=== PATIENT | male | born 1955 | race Caucasian/White ===

== ENCOUNTER 2018-11-27 10:11 | Day surgery (SDC) | payer OTHER ==
[~2018-11-27] VITALS: Ht 167.6 cm; Wt 93.2 kg
[2018-11-27] VITALS (11 sets, daily range): BP systolic 110–134; BP diastolic 59–72; PULSE 74–90; RESP 16–24; Ht 167.6 cm; Wt 93.2 kg
[~2018-11-27 10:11] MED LIST: CEFAZOLIN 2 GM/50 ML (PMX) 50 ML IVPB ONE; SOD CHLORIDE 0.9% 1,000 ML IV ONE
[2018-11-27] MEDS ORDERED: MTF1000T PO (11:05)
[2018-11-27] MEDS ORDERED: FURO40TA4 PO (11:06)
[2018-11-27] MEDS ORDERED: IBUP-1542 PO (11:06)
[2018-11-27] MEDS ORDERED: CHOL100062 PO (11:06)
[2018-11-27] MEDS ORDERED: TAMS0.4C2 PO ×2 (11:07→11:08)
[2018-11-27] MEDS ORDERED: ROSU40TA35 PO (11:07)
[2018-11-27] MEDS ORDERED: TRAM50TA PO (11:07)
[2018-11-27] MEDS ORDERED: ROSU20TA PO (11:08)
[2018-11-27] MEDS ORDERED: LANS15CA5 PO (11:08)
--- NOTE | 2018-11-27 11:59 | PREAC ---
Date/Time of Note Date/Time of Note DATE: 11/27/18 TIME: 11:58 Anesthesia Eval and Record Evaluation Time Pre-Procedure Interview DATE: 11/27/18 TIME: 11:58 Age 63 Sex male NPO: 8 hrs Preoperative diagnosis pilonidal cyst Planned procedure excision of pilonidal cyst Past Medical History Past Medical History: Includes Cardio: HTN, Dyslipidemia Endo: Diabetes Pulm: Smoking Hx (occasional) GI: Obesity Surgery & Anesthesia Issues No known issue Meds Anticoagulation: No Beta Elba within 24 hr: No Reason Beta Elba not given: Pt. not on B-Elba Reported Medications Tamsulosin Hcl* (Tamsulosin Hcl*) 0.4 Mg Cap.er.24h, 0.4 MG PO HS, CAP 11/27/18 Lansoprazole* (Lansoprazole*) 15 Mg Capsule.dr, 15 MG PO DAILY, CAP 11/27/18 Rosuvastatin Calcium* (Crestor*) 20 Mg Tablet, 20 MG PO QHS, #30 TAB 11/27/18 Tramadol Hcl* (Ultram*) 50 Mg Tablet, 50 MG PO DAILY PRN for PAIN, TAB 11/27/18 Ibuprofen* (Ibuprofen*) 600 Mg Tablet, 600 MG PO Q8 PRN for PAIN, TAB 11/27/18 Furosemide* (Furosemide*) 40 Mg Tablet, 40 MG PO DAILY, TAB 11/27/18 Cholecalciferol* (Vitamin D3*) 1,000 Unit Tablet, 1000 UNIT PO DAILY, TAB 11/27/18 Metformin* (Glucophage*) 1,000 Mg Tablet, 1000 MG PO BID, #60 TAB 11/27/18 Discontinued Reported Medications Rosuvastatin Calcium* (Crestor*) 40 Mg Tablet, 40 MG PO QHS, #30 TAB 11/27/18 Tamsulosin Hcl* (Tamsulosin Hcl*) 0.4 Mg Cap.er.24h, 0.4 MG PO HS, CAP 11/27/18 Current Medications Sodium Chloride 1,000 ml @ 75 mls/hr [id number] ONCE IV ; Start 11/27/18 at 07:00; Stop 11/27/18 at 20:19 Meds reviewed: Yes Allergies Coded Allergies: No Known Drug Allergies (Unverified Allergy, Unknown, 11/27/18) Allergies Reviewed: Yes Labs/Studies Labs Reviewed: Reviewed by anesthesiologist test: N/A Studies: ECG (normal sinus rhythm), CXR (bibasilar reticular opacities, probably subsegmental atelectasis) Pre-procedure Exam Last vitals Vital Signs Date Temp Pulse Resp B/P (MAP) Pulse Ox O2 O2 Flow FiO2 Time Delivery Rate 11/27/18 97.7 74 16 131/72 98 Room Air 11:48 (91) Airway: Adequate mouth opening, Adequate thyromental dist Mallampati: Mallampati II Teeth: Normal Lung: Normal Heart: Normal ASA Physical Status ASA physical status: 2 Emergency: None Planned Anesthetic General/MAC: ETT Planned Pain Management Parenteral pain med Pre-operative Attestations Prior to commencing anesthesia and surgery, the patient was re-evaluated, there was verification of: *The patient's identity *The results of appropriate recent lab work and preoperative vital signs *The above evaluation not changing prior to induction *Anesthetic plan, risk benefits, alternative and complications discussed with patient/family; questions answered; patient/family understands, accepts and wishes to proceed. MICKEY VILLAGOMEZ MD Nov 27, 2018 11:59
[2018-11-27] MEDS ORDERED: hydrALAzine 20 MG INJ IV PRN (13:00)
[2018-11-27] MEDS ORDERED: FENTAnyl 50 MCG/ML VIAL IV PRN (13:00)
[2018-11-27] MEDS ORDERED: PROCHLORPERAZINE 10 MG INJ IV PRN (13:00)
[2018-11-27] MEDS ORDERED: DIPHENHYDRAMINE 50 MG INJ IV PRN (13:00)
[2018-11-27] MEDS ORDERED: ONDANSETRON 4 MG INJ IV PRN ×2 (13:00→15:00)
[2018-11-27] MEDS ORDERED: LABETALOL HCL 20MG INJ IV PRN (13:00)
[2018-11-27] MEDS ORDERED: EPHEDrine SULFATE 50 MG/5 ML SYG IV PRN (13:00)
[2018-11-27] MEDS ORDERED: OXYCODONE/ACETAMINOPHEN (5/325) TAB PO PRN (13:00)
[2018-11-27] MEDS ORDERED: MEPERIDINE 25 MG INJ IV PRN (13:00)
[2018-11-27] MEDS ORDERED: HYDROmorphONE 1 MG/5 ML IV SYRINGE IV PRN ×3 (13:00)
[2018-11-27] MEDS ORDERED: BUPIVACAINE 0.5%/EPI (SDV) 30 ML INJ ONE (13:03)
[2018-11-27] MEDS ORDERED: POLYMYXIN B 500000 UNIT INJ ONE (13:03)
[2018-11-27] MEDS ORDERED: BACITRACIN/POLYMYXIN 28.35 GM OINT TOP ONE (13:04)
[2018-11-27] MEDS ORDERED: BACITRACIN 50000 UNITS INJ ONE (13:06)
--- NOTE | 2018-11-27 13:18 | HPN ---
Date/Time of Note Date/Time of Note DATE: 11/27/18 TIME: 13:18 Interval H&P Admission Note Pt. seen H&P reviewed: No system changes ANT CRAWLEY MD Nov 27, 2018 13:18
[2018-11-27] MEDS ORDERED: PROPOFOL 20 ML ONE (13:25)
[2018-11-27] MEDS ORDERED: ROCURONIUM 50 MG INJ ONE (13:25)
[2018-11-27] MEDS ORDERED: FENTAnyl 50 MCG/ML VIAL ONE (13:25)
[2018-11-27] MEDS ORDERED: LIDOCAINE 2% (SDV) 5 ML INJ ONE (13:25)
[2018-11-27] MEDS ORDERED: MIDAZOLAM 1 MG/ML 2 ML INJ ONE (13:25)
[2018-11-27] MEDS ORDERED: SUCCINYLCHOLINE CHLORIDE 100 MG/5 ML SYG IV ONE (13:25)
[2018-11-27] MEDS ORDERED: ONDANSETRON 4 MG INJ ONE (13:40)
[2018-11-27] MEDS ORDERED: DEXAMETHASONE 4 MG/ML 5 ML INJ ONE (13:40)
[2018-11-27] MEDS ORDERED: CEFAZOLIN 1 GM INJ ONE (13:40)
[2018-11-27] MEDS ORDERED: FAMOTIDINE 20 MG INJ ONE (13:40)
[2018-11-27] MEDS ORDERED: NEOSTIGMINE 10 MG INJ ONE (14:15)
[2018-11-27] MEDS ORDERED: GLYCOPYRROLATE 0.4 MG INJ ONE ×2 (14:15→14:26)
[2018-11-27] MEDS ORDERED: EPHEDrine SULFATE 50 MG/5 ML SYG ONE (14:17)
[2018-11-27] MEDS ORDERED: SUGAMMADEX SODIUM 200 MG/2 ML VIAL IV ONE (14:24)
[2018-11-27] MEDS ORDERED: KETOROLAC 30 MG INJ ONE (14:38)
--- NOTE | 2018-11-27 14:47 | OPR ---
Date/Time of Note Date/Time of Note DATE: 11/27/18 TIME: 14:42 Operative Report Procedure Date: Nov 27, 2018 Preoperative Diagnosis Pilonidal cyst with sinus Postoperative Diagnosis Pilonidal cyst with sinus Operation/Procedure Performed 1. Excision of pilonidal cyst with sinus (complex) 2. Creation of local advancement flaps 3. Biological extracellular matrix Surgeon see signature line Assembler Erector None Anesthesia Type: general Anesthesiologist: MICKEY VILLAGOMEZ MD Estimated Blood Loss: minimal Transfusion none Specimen Pilonidal cyst with sinus Grafts/Implants Amniofill biological extracellular matrix 1000 mg Complications none Pt Condition Post Procedure: stable Disposition: PACU Indications The patient is an obese 63-year-old male who presented to the office with a 5-6 year history of a pilonidal cyst with sinus. He was therefore scheduled for elective pilonidal cystectomy. All risks and benefits of the procedure including, but not limited to: Wound infection, excessive bleeding, postoperative seroma/hematoma formation, prolonged wound healing, need for meticulous hygiene of the area in order to keep the area hair free, cyst/sinus recurrence, etc. were all explained to the patient in full detail. He fully understood and wished to proceed with the procedure. Informed consent was obtained. Procedure Description Patient was brought to the operating room and kept on his operating room stretcher. Bilateral sequential compression devices were placed on both lower e xtremities. A dose of broad-spectrum perioperative intravenous antibiotics was given. General anesthesia was induced with the patient on his stretcher. After the induction of smooth general endotracheal anesthesia the patient was then positioned in the prone jackknife position on the operating table. The buttocks was shaved and taped apart. The buttock area was then prepped and draped in standard surgical fashion. The patient had some superficial scabbing lesions of the skin near the gluteal cleft and extending to the gluteal areas. An elliptical incision was made using a 15 blade scalpel encompassing the pilonidal cyst and sinus and extending down to inferior of the midline pits in the gluteal cleft. The area was anesthetized with 0.5% Marcaine prior to incision. Incision was taken down through the skin and into the subcutaneous tissues using Bovie electrocautery. Dissection was continued down to the level of the presacral fascia. The specimen was then transected at its base and passed off the field. Marking stitch was used to pramod the superior aspect. Local advancement flaps were then raised circumferentially to aid in tension-free closure. The wound cavity was then irrigated using antibiotic irrigation and a pulse lavage machine. Hemostasis was inspected for and noted to be total. To aid in wound regeneration and minimize the risk of infection 1000 mg of acellular biological extracellular matrix was implanted on top of the presacral fascia and the deep tissues. The deep tissues were then reapproximated using interrupted 2-0 Vicryl sutures. The dermal layer was reapproximated using interrupted 3-0 Vicryl sutures. Further local anesthesia was applied around the skin of the incision site. The skin was reapproximated using interrupted 2-0 nylon sutures in vertical mattress fashion such that the incision laid just off the midline. Interrupted 2-0 nylon sutures were placed in between. Incision was then cleaned and sterile dressings were applied. The patient was then awoken from anesthesia and transported to the recovery room in stable condition. All counts were correct at the end of the case 2. ANT CRAWLEY MD Nov 27, 2018 14:47
[2018-11-27] MEDS ORDERED: IBUPROFEN 600 MG TAB PO PRN (15:00)
[2018-11-27] MEDS ORDERED: HYDROCODONE/APAP (5/325) TAB PO PRN ×2 (15:00)
[2018-11-27] MEDS ORDERED: KETOROLAC 30 MG INJ IV PRN (15:00)
[2018-11-27] MEDS ORDERED: INSULIN ASPART [NOVOLOG] 3 ML PEN SC ONE (15:00)
--- NOTE | 2018-11-27 15:01 | PAC ---
Date/Time of Note Date/Time of Note DATE: 11/27/18 TIME: 15:00 Post-Anesthesia Notes Post-Anesthesia Note Last documented vital signs Vital Signs Date Temp Pulse Resp B/P (MAP) Pulse Ox O2 O2 Flow FiO2 Time Delivery Rate 11/27/18 90 22 117/63 100 Room Air 14:52 (81) 11/27/18 98.3 14:50 Activity: WNL Respiratory function: WNL Cardiovascular function: WNL Mental status: Baseline Pain reasonably controlled: Yes Hydration appropriate: Yes Nausea/Vomiting absent: Yes Comments BP: 130/62 HR: 89 RR: 15 T: 98.3 SaO2: 98% MICKEY VILLAGOMEZ MD Nov 27, 2018 15:01
== END 2018-11-27 16:10 | disposition home or self-care (01) ==
LOC: SDS 10:11
PROVIDERS: ATTEND Surgery
DX: L05.91 Pilonidal cyst without abscess (principal); E11.9 Type 2 diabetes mellitus without complications; E78.5 Hyperlipidemia, unspecified; I10 Essential (primary) hypertension
CPT/HCPCS: 11772; 80053; 82962; J0690; J1100; J1815; J1885; J2250; J2405; J2710; J3010; Z7512; Z7610; 88304